=== PATIENT | female | born 1970 | race Two or more races ===

== ENCOUNTER 2021-01-16 10:46 | Emergency (ER) | payer MEDICAID, OTHER ==
[~2021-01-16] VITALS: Ht 167.6 cm; Wt 93.4 kg
[2021-01-16 13:16] VITALS: BP 135/80
[2021-01-16] MEDS ORDERED: ACETAMINOPHEN 500 MG TAB PO ONE (14:00)
== END 2021-01-16 14:23 | disposition home or self-care (01) ==
LOC: ER 10:46 → EDBD 10:46 → ER 14:22
DX: S00.03XA Contusion of scalp, initial encounter (principal); E11.9 Type 2 diabetes mellitus without complications; I10 Essential (primary) hypertension; E03.9 Hypothyroidism, unspecified; W22.8XXA Striking against or struck by other objects, initial encounter; Y93.89 Activity, other specified; Y92.89 Other specified places as the place of occurrence of the external cause; Y99.8 Other external cause status
CPT/HCPCS: 70450